=== PATIENT | female | born 1950 | race African-American/Black ===

== ENCOUNTER 2019-05-27 17:41 | Inpatient (IN) | payer OTHER, MEDICAID ==
[~2019-05-27] VITALS: Ht 160 cm; Wt 60.3 kg
[2019-05-27 17:41] VITALS: Ht 160 cm; Wt 60.3 kg
[~2019-05-27 17:41] MED LIST: ASPIR 8181 MG PO; COLACE100 MG PO; FLE10 PO; LAC PO; LAC30L PO; LEVAQUIN750 MG PO; LIPI10 PO; NIC14 TD; NORCO1 TA2 PO; OXYCONTIN20 MG PO; PERCOCET1 TA2 PO; TYLENOL EXTRA500 M2 PO; XANAX0.25 MG PO
--- NOTE | 2019-05-27 17:55 | NUR ---
PT BIB [facility]OC UNRESPONSIVE LYING SUPINE IN MOTEL ROOM WITH PIN POINT PUPILS. PT WAS GIVEN NARCAN 0.5MG IN BY MEDICS NO RESPONSE, PT THEN WAS GIVEN ANOTHER DOSE OF NARCAN 0.5MG IVP BY [facility] IN ROUTE. PTS HAD A POSITIVE RESPONSE AWAKE WITH GARBLED SPEECH UNABLE TO FOLLOW COMMANDS AT THIS TIME. DROWSY SNORING RESPIRATIONS GAG REFLEX INTACT. PT PLACED ON FULL CM NSR VSS IV TO RAC ESTABLISHED OFFICE MESSENGER TO ED BY MEDS 20G PATENT FLUSHED WITH 10CC NS WITH NO PROBLEM. STRAIGHT CATH DONE TOLERATED WELL URINE COLLECTED SENT TO LAB, MSE COMPLETED BY DR JOLLEY. PT IN NO DISTRESS WILL MONITOR.
[2019-05-27 18:11] LABS: UA SPECIFIC GRAVITY 1.025 (1.005-1.035); microscopic required? YES; urine erythrocyte NEGATIVE (NEGATIVE)
--- NOTE | 2019-05-27 18:13 | NUR ---
PT MEDICATED PER MD ORDERS SEE EMAR. PT IN NO DISTRESS. MULTIPLE SNEEZES. PT SUCTION FOR EXCESS SALIVA. NO RESP DISTRESS NO AIRWAY COMPROMISE. PT SITTING IN BED. PT REMAINS ALOC CALM AND COOPERATIVE AT THIS TIME. FOLLOWS SOME COMMANDS.
[2019-05-27 18:19] LABS: BASOPHIL % 0.2 % (0-2); PLATELET COUNT 258 x10^3mcL (130-400)
[2019-05-27 18:20] LABS: RED CELL DISTRIBUTION WIDTH 16.4 % (11.5-14.5)
[2019-05-27 18:27] LABS: CALCIUM 9.7 mg/dL (8.5-10.1); CARBON DIOXIDE 24.1 mmol/L (21-32); CREATININE SERUM 1.2 mg/dL (0.6-1.0); POTASSIUM SERUM 3.1 mmol/L (3.5-5.1)
[2019-05-27 18:31] LABS: ALBUMIN 3.8 g/dL (3.4-5.0); BILIRUBIN TOTAL 0.5 mg/dL (0.20-1.00); TOTAL PROTEIN, SERUM 7.1 g/dL (6.4-8.2)
--- NOTE | 2019-05-27 18:51 | NUR ---
PT REMAINS ALOC NO DISTRESS ON FULL CM VSS IV SITE SALINE LOCK PATENT. PT IN POSITION OF COMFORT. SEIZURE PADS IN PLADS DUE TO PT MOVING AROUND AND HAVING LEGS HANGING FROM SIDE OF BED AND SAFETY.
[2019-05-27 18:59] LABS: AMPHETAMINE QUAL UR POSITIVE (See below)
--- NOTE | 2019-05-27 19:23 | NUR ---
PT MOVED TO BED 3 FOR CLOSER OBSERVATION DUE TO CONSTANT MOVEMENT AND FOR SAFETY , PT IN VIEW OF NURSE STATION. PT MEDICATED PER MD ORDERS SEE EMAR. IV SITE PATENT. IVF INFUSING WITH NO PROBLEM
--- NOTE | 2019-05-27 19:25 | NUR ---
MIREILLE RODRIGUEZ GIVEN REPORT. WILL RESUME CARE OF PT AT THIS TIME.
--- NOTE | 2019-05-27 19:25 | NUR ---
PT APPEARS AGGITATED AND IS NOTED PULLING AT EQUIPMENT. ATTEMPTED TO REORIENT PATIENT AND PROVIDE COMFORT MEASURES. PT REMAINS RESTLESS AND ATTEMPTING TO SIT UP, YELLING INCOMPREHENSIBLE WORDS, AND PULLING AT EQUIPMENT. PER DR JOLLEY PUT PT ON 4 POINT RESTRAINTS FOR PT SAFETY. PT PLACED IN 4 POINT RESTRAINTS WITH ASSITANCE FROM MIREILLE RODRIGUEZ AND CARMEN RODRIGUEZ. SIDE RAILS UP AND PADDED FOR PT SAFETY. WILL CONTINUE TO MONITOR. CURTAIN OPEN, ABLE TO VISUALIZE PT FROM NURSING STATION. SAFETY MEASURES IN PLACE. BED IN LOWEST POSITION. +PMSC TO ALL EXTREMITIES.
--- NOTE | 2019-05-27 19:30 | NUR ---
PER DR JOLLEY PLACE PURI CATH ON PT TO MONITOR URINE OUTPUT AT THIS TIME.
--- NOTE | 2019-05-27 20:21 | NUR ---
PT TAKEN TO CT VIA GURNEY AT THIS TIME IN 4 POINT RESTRAINTS ACCOMPANIED BY 2 RADIOLOGY TECHS. PT REMAINS PULLING AT RESTRAINTS AND YELLING INCOMPREHENSABLE WORDS. PER DR JOLLEY OKAY FOR PT TO GO TO CT AT THIS TIME. JAXSON SOSA.
[2019-05-27 20:23] LABS: UA SPECIFIC GRAVITY 1.015 (1.005-1.035); microscopic required? YES; urine erythrocyte TRACE (NEGATIVE)
--- NOTE | 2019-05-27 20:37 | NUR ---
PT BACK FROM CT VIA GURNEY. [address] CM AND [address]. PT REMAINS AGGITATED AND CONTINUES TO PULL AT RESTRAINTS. BED IN LOWEST POSITION. CURTAIN OPEN AND ABLE TO VISUALIZE PT FROM NURSING STATION. SAFETY MEASURES IN PLACE. WILL CONTINUE TO MONITOR.
--- NOTE | 2019-05-27 21:09 | NUR ---
LAB AT BEDSIDE.
--- NOTE | 2019-05-27 21:38 | NUR ---
PT OPENS EYES TO VERBAL STIMULI. APPEARS SLEEPING AND NO LONGER PULLING AT RESTAINTS. PER DR JOLLEY REMOVE RESTRAINTS AT THIS TIME. 4 POINT RESTRAINTS REMOVED. +PMSC.
--- NOTE | 2019-05-27 22:11 | NUR ---
XRAY AT BEDSIDE.
--- NOTE | 2019-05-27 22:22 | NUR ---
REPORT GIVEN TO DEANA RODRIGUEZ
--- NOTE | 2019-05-27 22:30 | NUR ---
PT TRANSFERED TO TELE VIA [employer] AT THIS TIME IN NAD. PT OPENS EYES TO VERBAL STIMULI BUT STILL UNABLE TO ANSWER QUESTIONS APPROPRIATELY AND SPEAKING INCOMPREHENSIBLE WORDS. PT BREATHING EVEN AND UNLABORED. PT IS CALM AND NON-COMBATIVE. PT REMAINS AGGITATED WITH TACTILE STIMULI. PT ACCOMPANIED BY EMT WES AND JENNIFER KENDRICK. IV FLUIDS ENDORSED TO DEANA RODRIGUEZ.
[2019-05-27 22:47] VITALS: BP 124/80
--- NOTE | 2019-05-27 22:55 | NUR ---
[facility] ORIENTED PT TO ROOM AND SURROUNDINGS. IV NOTD TO RAC PATENT AND INTACT. TELE 24 PLACED ON PT READING NSR. ENDORSED PT TO PRIMARY NURSE DEANA
--- NOTE | 2019-05-27 22:57 | NUR ---
DR. BARCENAS WENT TO ASSESS PT, PER DR. BARCENAS, PT IS VOICING SUICIDAL IDEATIONS STATING THAT SHE WANTED TO KILL HERSELF. CHARGE NURSE TULIO MADE AWARE. PT PLACED CLOSE TO NURSING STATION FOR MONITORING, BIOMEDICAL ENGINEER MADE AWARE OF NEED FOR SITTER.
[2019-05-27 23:02] LABS: CHOLESTEROL/HDL RATIO 3.2; MAGNESIUM 1.7 mg/dL (1.8-2.4); PHOSPHOROUS 2.3 mg/dL (2.5-4.9)
[2019-05-27 23:07] LABS: T3 TOTAL 1.57 ng/mL
[2019-05-27 23:24] LABS: FREE T4 1.43 ng/dL (0.76-1.46); T4(THYROXINE) 10.9 ug/dL (4.7-13.3)
--- NOTE | 2019-05-28 00:41 | NUR ---
PT UNABLE TO TOLERATE PO MEDICATIONS AT THIS TIME, TOO DROWSY TO FOLLOW COMMANDS, ONLY BRIEFLY OPENS EYES AND GOES BACK TO SLEEP. 1:1 AT BEDSIDE FOR SAFETY. WILL CONTINUE TO MONITOR.
--- NOTE | 2019-05-28 02:18 | NUR ---
SPOKE TO DR. BARCENAS REGARDING DIET ORDER. WAITING FOR NEW ORDERS.
[2019-05-28 05:48] VITALS: BP 105/68
--- NOTE | 2019-05-28 05:49 | NUR ---
PT HAD RESTFUL NIGHT. MORE AWAKE THIS MORNING, ABLE TO FOLLOW BASIC COMMANDS, AAO TO SELF, PLACE, AND YEAR. DENIES PAIN. MEDICATED PER EMAR FOR RESTLESSNESS, TOLERATED WELL. PT REFUSING TO COOPERATE WHEN ASKED IF PT IS HAVING SUICIDAL IDEATIONS OR THOUGHTS OF HARMING SELF, JUST STATES "I'M NOT GOING TO TELL YOU. YOU'RE JUST GOING TO GET ME LOCKED UP". SITTER AT BEDSIDE FOR SAFETY. PURI DRAINING CLEAR YELLOW URINE. CALL LIGHT WITHIN REACH. SZ PRECAUTIONS IN PLACE. SAFETY MEASURES IN PLACE. WILL ENDORSE CARE TO ONCOMING SHIFT.
[2019-05-28 06:16] LABS: BASOPHIL % 0.3 % (0-2); PLATELET COUNT 247 x10^3mcL (130-400)
[2019-05-28 06:38] LABS: CHLORIDE SERUM 112 mmol/L (98-107); CREATININE SERUM 0.8 mg/dL (0.6-1.0); GFR1 > 60 mL/min; GLUCOSE SERUM 80 mg/dL (74-106); PHOSPHOROUS 2.7 mg/dL (2.5-4.9); POTASSIUM SERUM 3.5 mmol/L (3.5-5.1); SODIUM SERUM 146 mmol/L (136-145)
--- NOTE | 2019-05-28 07:15 | NUR ---
BEDSIDE REPORT GIVEN TO JENNIFER ARANA.
[2019-05-28 07:17] LABS: RED CELL DISTRIBUTION WIDTH 15.8 % (11.5-14.5)
--- NOTE | 2019-05-28 07:17 | NUR ---
RECEIVED PATIENT RESTING COMFORTABLY IN BED. IV TO RAC IS PATENT AND INFUSING NS @ 100 ML/HR. NO REDNESS OR PAIN. TELE # [address] PT DENIES CHEST PAIN. PT ON ROOM AIR. NO C/O SOB AND NO DISTRESS NOTED. PURI IN PLACE DRAINING YELLOW URINE. ALL QUESTIONS AND CONCERNS ADDRESSED.
[2019-05-28 08:34] VITALS: BP 110/88
--- NOTE | 2019-05-28 13:02 | NUR ---
DR LANGFORD IN TO SEE AND ASSESS PATIENT. INFORMED THAT PATIENT IV HAS INFILTRATED AND PT REFUSES NEW INSERTION. PT THREATENING TO REMOVE PURI HERSELF. DR LANGFORD ORDERED TO REMOVE PURI AND CONVINCED PATIENT TO ALLOW NEW IV FOR FLUIDS. PT ALLOWED ONLY IF GIVEN PAIN MEDICATION FIRST.
[2019-05-28 13:27] VITALS: BP 136/95
--- NOTE | 2019-05-28 13:59 | NUR ---
PT AGITATED AND HAS CHANGED CLOTHES. PATIENT WALKED OUT OF HOSPITAL FOLLOWED BY MAURA FIERRO AND MYSELF CONTINUOUSLY ATTEMPTING TO STOP PATIENT. SECURITY CALLED WITH NO ANSWER. PT EXITED THE HOSPITATL AND SMOKED A CIGARETTE, AWARE THAT THIS IS AGAINST HOSPITAL POLICY. DR LNAGFORD NOTIFIED.
--- NOTE | 2019-05-28 16:48 | NUR ---
DR MARQUEZBA IN TO SEE PATIENT. DR CONVINCED PATIENT TO STAY FOR CK LAB DRAW WITH POSSIBLE DISCHARGE AFTERWARDS. PT OK TO STAY FOR NOW.
[2019-05-28 17:31] VITALS: BP 148/91
--- NOTE | 2019-05-28 18:08 | NUR ---
DR LANGFORD PAGED TO NOTIFY OF PATIENT CK INCREASING AND PT INSISTING ON "PAIN SHOT", BEING DISCHARGED, IV INFILTRATING FOR THE SECOND TIME, AND REFUSING ALL CARE.
--- NOTE | 2019-05-28 19:02 | NUR ---
SPOKE TO DR LANGFORD IN THE TABOR AND NOTIFIED THAT PATIENT IS LEAVING AMA. DR LANGFORD HAS ALREADY EXPLAINED THE PLAN OF CARE AND THE RISKS OF LEAVING AMA AND THE PATIENT STILL INSISTED ON LEAVING. PT WAS ALREADY REFUSING ALL CARE, A NEW IV INSERTION, AND IS HIGHLY AGITATED INSISTING SHE LEAVE NOW. TELE MONITOR REMOVED AND MONITOR NOTIFIED, ID BANDS CUT, IV REMOVED, AMA FORM SIGNED, PT ESCORTED TO LOBBY.
== END 2019-05-28 18:57 | disposition left against medical advice (07) | DRG 917 ==
LOC: ED 17:41 → DU 21:52
PROVIDERS: Emergency Medicine; ADMIT Internal Medicine
DX: T40.2X1A Poisoning by other opioids, accidental (unintentional), initial encounter (principal); G92 Toxic encephalopathy; N17.0 Acute kidney failure with tubular necrosis; M62.82 Rhabdomyolysis; R45.851 Suicidal ideations; E87.0 Hyperosmolality and hypernatremia; T43.621A Poisoning by amphetamines, accidental (unintentional), initial encounter; T40.5X1A Poisoning by cocaine, accidental (unintentional), initial encounter; T42.4X1A Poisoning by benzodiazepines, accidental (unintentional), initial encounter; T51.0X1A Toxic effect of ethanol, accidental (unintentional), initial encounter; E87.6 Hypokalemia; E83.42 Hypomagnesemia; E83.39 Other disorders of phosphorus metabolism; E16.2 Hypoglycemia, unspecified; R73.03 Prediabetes; F32.9 Major depressive disorder, single episode, unspecified; F10.129 Alcohol abuse with intoxication, unspecified; F15.10 Other stimulant abuse, uncomplicated; F14.10 Cocaine abuse, uncomplicated; F11.10 Opioid abuse, uncomplicated; M19.90 Unspecified osteoarthritis, unspecified site; E11.9 Type 2 diabetes mellitus without complications; E78.5 Hyperlipidemia, unspecified; Z68.24 Body mass index [BMI] 24.0-24.9, adult; Z86.73 Personal history of transient ischemic attack (TIA), and cerebral infarction without residual deficits; Z79.82 Long term (current) use of aspirin; Y90.1 Blood alcohol level of 20-39 mg/100 ml; Y92.59 Other trade areas as the place of occurrence of the external cause
CPT/HCPCS: 82962; 83880; 84439; G0378; G0480; J2310; J2405; J2765; J3475; J3480; J3490; J7030; J7040; Q0092

== ENCOUNTER 2019-05-29 19:05 | Emergency (ER) | payer OTHER, MEDICAID ==
[~2019-05-29] VITALS: Ht 154.9 cm; Wt 58.1 kg
[2019-05-29 19:17] VITALS: Ht 154.9 cm; Wt 58.1 kg
[2019-05-29 20:04] LABS: BASOPHIL % 0.5 % (0-2); PLATELET COUNT 277 x10^3mcL (130-400); RED CELL DISTRIBUTION WIDTH 16.1 % (11.5-14.5)
[2019-05-29 20:20] LABS: CALCIUM 8.7 mg/dL (8.5-10.1); CARBON DIOXIDE 25.8 mmol/L (21-32); POTASSIUM SERUM 3.9 mmol/L (3.5-5.1)
[2019-05-29 20:25] LABS: BILIRUBIN TOTAL 0.39 mg/dL (0.20-1.00)
[2019-05-29 20:27] LABS: ALBUMIN 2.8 g/dL (3.4-5.0); TOTAL PROTEIN, SERUM 5.5 g/dL (6.4-8.2)
[2019-05-29 22:30] VITALS: BP 111/64
== END 2019-05-29 23:19 | disposition home or self-care (01) ==
LOC: ED 19:05
PROVIDERS: Emergency Medicine
DX: S49.92XA Unspecified injury of left shoulder and upper arm, initial encounter (principal); S79.912A Unspecified injury of left hip, initial encounter; S89.92XA Unspecified injury of left lower leg, initial encounter; S09.8XXA Other specified injuries of head, initial encounter; R55 Syncope and collapse; Z86.73 Personal history of transient ischemic attack (TIA), and cerebral infarction without residual deficits; Z98.890 Other specified postprocedural states; W18.39XA Other fall on same level, initial encounter; Y93.89 Activity, other specified; Y92.090 Kitchen in other non-institutional residence as the place of occurrence of the external cause; Y99.8 Other external cause status
CPT/HCPCS: 36415; J1885

== ENCOUNTER 2020-08-20 16:00 | Emergency (ER) | payer OTHER, MEDICAID ==
[~2020-08-20] VITALS: Ht 154.9 cm; Wt 58.1 kg
[2020-08-20 16:01] VITALS: Ht 154.9 cm; Wt 58.1 kg
[2020-08-20 18:43] VITALS: BP 124/76
== END 2020-08-20 18:44 | disposition home or self-care (01) ==
LOC: ED 16:00
DX: G56.21 Lesion of ulnar nerve, right upper limb (principal)
CPT/HCPCS: Q0092